=== PATIENT | male | born 1980 | race Caucasian/White ===

== ENCOUNTER 2019-11-30 06:22 | Observation (INO) ==
--- NOTE | 2019-11-12 11:52 | PAT Medication Instructions ---
Medication Instructions Date of Service November 12, 2019 Home Medications acetaminophen [Tylenol] 325 - 650 mg PO QID PRN gabapentin 300 mg PO TID omeprazole 20 mg PO DAILY PRN Take morning of surgery With a small sip of water, OTHERWISE NOTHING TO EAT OR DRINK AFTER MIDNIGHT: acetaminophen [Tylenol] 325 - 650 mg PO QID PRN (okay to take up to 4 hours prior to surgery if needed) gabapentin 300 mg PO TID omeprazole 20 mg PO DAILY PRN (if needed) Take evening before surgery acetaminophen [Tylenol] 325 - 650 mg PO QID PRN (if needed) gabapentin 300 mg PO TID omeprazole 20 mg PO DAILY PRN (if needed) Other Notes If you have any questions please call us at [phone] or [phone] or [phone] or [phone]
--- NOTE | 2019-11-17 09:49 | Anesthesiology Consultation ---
Date of Service November 17, 2019 Assessment & Plan (1) Encounter for pre-operative examination: Per assessment on 11/16: Travel screen negative. No known COVID-19 positive contacts or current COVID-19 related symptoms. Surgeon arranging preop COVID testing. Awaiting results. Chart Review Chart Review: Acceptable Risk for Surgery and Patient seen in Pre Admission Testing Teaching & Discussion Pre-Anesthesia Teaching/Discussion Notes: Instructed NPO after midnight before surgery,except medications with 15 cc of water. Medication instructions provided according to the PAT guidelines. History Surgery Operation Date: 11/30/19 11:50 Proposed Procedures p C6-C7 Anterior Cervical Discectomy and Fusion, C6 Corpectomy, Spinal Cord Monitoring - Isidro Reese, Height/Weight Height: 5 ft 11.5 in Weight: 90.2 kg Allergies Allergy/AdvReac Type Severity Reaction Status Date / Time morphine AdvReac Intermediate Irritable Verified 11/10/19 08:49 Medications Home Medications Medication Instructions Recorded Confirmed Last Taken acetaminophen [Tylenol] 325 - 650 mg PO QID PRN 11/10/19 11/10/19 Unknown gabapentin 300 mg PO TID 11/10/19 11/10/19 Unknown omeprazole 20 mg PO DAILY PRN 11/10/19 11/10/19 Unknown Past Medical History Medical History Arthritis Claustrophobia Deep vein thrombosis 1+ years ago (LLE) GERD (gastroesophageal reflux disease) IBS (irritable bowel syndrome) hx linzess Migraine Exercise / Class Metabolic Activity III < 4 Walking/Shop/Light housework Past Family History Family History Grandfather (Maternal) Family history of diabetes mellitus Past Surgical History Surgical History H/O foot surgery RT FOOT (TOTAL OVER 13 SURGERY/CRUSHING INJURY) AT AGE 11 H/O plastic surgery RT SIDE OF FACE (DOG BIET AT AGE 9) History of amputation RT FOOT SMALL TOE History of esophagogastroduodenoscopy (EGD) Hx of skin graft RT FOOT [place] teeth removed Past Anesthesia History No Family Hx of Anesthesia Complications and Other ("Awareness" with previous surgeries (foot surgery/skin graft)) History of PONV No Hx of PONV and Hx of Motion Sickness STOP BANG Total 4 Social History Smoking Status: Current every day smoker tobacco type: cigarettes and smokeless tobacco Do You Dip or Chew Tobacco: Yes (8 CANS PER WEEK- Advised NPO AM DOS) Smoking End Date: 20 CIG DAILY Hx Alcohol Use: Yes Alcohol type: beer alcohol intake frequency: a few times a month Hx Substance Use: Yes substance use type: marijuana Last Used Substance Other:: occasional (inhalation)- Advised NPO AM DOS Review of Systems Patient denies chest pain, shortness of breath, fever, chills, cough, wheezing, palpitations. Physical Exam Vital Signs VITALS BP 116/79 P 78 TEMP 98.2 SP02 95%RA RESP 16 PHYSICAL Full neck and c-spine range of motion. Full TMJ range of motion. TMD 3.5 finger breaths Mallampati Score 2 Dentition: several missing sides/molars, + "dental work"/"nothing removable" Lungs: clear throughout to auscultation Cardiac: regular rate and rhythm, no murmurs noted Spine: normal Carotid arteries: negative bruit Extremities: no edema Testing Laboratory Results 11/17/19 10:05 11/17/19 10:05 PT 10.6 Seconds (9.0-12.0) 11/17/19 10:05 INR 1.0 (0.9-1.1) 11/17/19 10:05 APTT 31.6 Seconds (21.0-31.0) H 11/17/19 10:05 Urine Color Yellow 11/17/19 10:05 Urine Appearance Clear (Clear) 11/17/19 10:05 Urine pH 6.0 (4.5-7.5) 11/17/19 10:05 Ur Specific [place] 1.024 (1.000-1.030) 11/17/19 10:05 Urine Protein Negative (Negative) 11/17/19 10:05 Urine Glucose (UA) Negative (Negative) 11/17/19 10:05 Urine Ketones Negative (Negative) 11/17/19 10:05 Urine Nitrite Negative (Negative) 11/17/19 10:05 Ur Leukocyte Esterase Negative (Negative) 11/17/19 10:05 Blood Type O Negative 11/17/19 10:05 Antibody Screen NEGATIVE 11/17/19 10:05 Electrocardiogram Date: 11/17/19 Findings: + NSR @ (70) Chest X-Ray Date: 11/17/19 FINDINGS: Cardiomediastinal and hilar silhouettes are within normal limits. Mild pleural thickening at the apices. No pneumothorax, pleural effusion, airspace consolidation or overt pulmonary edema. Bones of the chest appear grossly intact. IMPRESSION: No acute process.
--- NOTE | 2019-11-17 10:47 | XRay Report ---
XR chest Pre-admission PA/Lat HISTORY: 39 years-old Male pat preoperative exam. No acute chest complaints COMPARISON: None TECHNIQUE: PA and lateral views of the chest FINDINGS: Cardiomediastinal and hilar silhouettes are within normal limits. Mild pleural thickening at the apic es. No pneumothorax, pleural effusion, airspace consolidation or overt pulmonary edema. Bones of the chest appear grossly intact. IMPRESSION: No acute process. ACT 112: Negative or not required by law. The above report was generated using voice recognition software. It may contain grammatical, syntax o r spelling errors. Electronically signed by: Bubba Tubbs M.D. 11/17/2019 10:45 AM
[2019-11-17 11:16] LABS: Basophils # (auto) 0.03 K/uL (0-0.2); Basophils % (auto) 0.3 %; Eosinophils # (auto) 0.23 K/uL (0-0.5); Eosinophils % (auto) 2.3 %; Hematocrit (blood only) 51.7 % (42-52); Hemoglobin 16.7 g/dL (14.0-18.0); Immature Granulocytes # (auto) 0.02 K/uL (0.00-0.02); Immature Granulocytes % (auto) 0.2 %; Lymphocytes # (auto) 2.91 K/uL (1.2-3.4); Mean Corpuscular Hemoglobin 28.6 pg (25-34); Mean Corpuscular Hgb Conc 32.3 g/dL (32-36); Mean Corpuscular Volume 88.7 fL (80-100); Mean Platelet Volume 11.8 fL (7.4-10.4); Monocytes # (auto) 0.63 K/uL (0.11-0.59); Monocytes % (auto) 6.3 %; Neutrophils # (auto) 6.22 K/uL (1.4-6.5); Neutrophils % (auto) 61.9 %; Platelet Count 270 K/uL (130-400); RDW Coefficient of Variation 13.9 % (11.5-14.5); RDW Standard Deviation 45.1 fL (36.4-46.3); Red Blood Count 5.83 M/uL (4.7-6.1); White Blood Count 10.04 K/uL (4.8-10.8)
[2019-11-17 11:24] LABS: BUN Creatinine Ratio 12.2 (10-20); Calcium 9.7 mg/dl (8.5-10.1); Creatinine Clr Calc Pharmacy 116.8 ml/min; Est GFR (African American) 122.5; Est GFR (Non-African American) 105.7; Potassium 4.4 mmol/L (3.5-5.1)
[2019-11-17 11:37] LABS: Partial Thromboplastin Ratio 1.1; Partial Thromboplastin Time 31.6 Seconds (21.0-31.0); Prothrombin Time 10.6 Seconds (9.0-12.0)
[2019-11-17 12:01] LABS: Appearance Urine Clear (Clear); Bilirubin Urine Negative (Negative); Blood Urine Negative (Negative); Color Urine Yellow; Glucose Urine UA Negative (Negative); Ketones Urine Negative (Negative); Leukocyte Esterase Urine Negative (Negative); Nitrite Urine Negative (Negative); Protein Urine Negative (Negative); Specific Gravity Urine 1.024 (1.000-1.030); Urobilinogen Urine Negative (Negative)
--- NOTE | 2019-11-17 17:27 | Electrocardiogram Report ---
Test Reason : Blood Pressure : / mmHG Vent. Rate : 070 BPM Atrial Rate : 070 BPM P-R Int : 170 ms QRS Dur : 096 ms QT Int : 380 ms P-R-T Axes : 058 089 057 degrees QTc Int : 410 ms Normal sinus rhythm Normal ECG No previous ECGs available Confirmed by Bao Mathew ([id number]) on 11/17/2019 5:27:29 PM Referred By: Isidro Reese Confirmed By:Ward Mathew
[~2019-11-30 06:22] MED LIST: ACETAMINOPHEN 500 MG TAB PO SCH; CeleBREX 200 MG CAP PO SCH; GABAPENTIN 900 MG DOSE PO SCH; LR 15ML/HR IV SCH; ceFAZolin 2000MG 2,000 MG/15 ML SYR IV SCH
[2019-11-30] MEDS ORDERED: fentaNYL citrate 100 MCG/2 ML VIAL ONE (06:54)
[2019-11-30] MEDS ORDERED: MIDAZOLAM HCL 1 MG/ML 2ML VIAL ONE (06:54)
[2019-11-30] MEDS ORDERED: HYDROmorphone INJ 2 MG/ML SYR/VIAL ONE (06:57)
[2019-11-30] MEDS ORDERED: BACITRACIN INJ 50,000 UNIT VIAL ONE (07:07)
--- NOTE | 2019-11-30 07:30 | History & Physical Bridge Note ---
Date of Service November 30, 2019 History & Physical Bridge Note I have examined the patient, reviewed the History & Physical and in the interval since the performance of the History & Physical I have noted the following changes of clinical significance: no changes noted
--- NOTE | 2019-11-30 07:32 | History & Physical Report ---
Date of Service November 30, 2019 Assessment & Plan (1) Cervical stenosis of spinal canal: Admission and Anticipated Discharge Date Admission Date: C5-C7 anterior cervical discectomy and fusion, C6 corpectomy History of Present Illness Chief Complaint: Neck and arm symptoms Primary Care Provider: Orestes Jackman MD 39-year-old male significant neck and arm symptoms is failed extensive course of nonoperative care and here for surgical invention. Allergies Allergy/AdvReac Type Severity Reaction Status Date / Time morphine AdvReac Intermediate Irritable Verified 11/30/19 06:48 Home Medications Home Medications Medication Instructions Recorded Confirmed Type acetaminophen [Tylenol] 325 - 650 mg PO QID PRN 11/10/19 11/30/19 History gabapentin 300 mg PO TID 11/10/19 11/30/19 History omeprazole 20 mg PO DAILY PRN 11/10/19 11/30/19 History Past Med/Surg History Medical History Arthritis Claustrophobia Deep vein thrombosis 1+ years ago (LLE) GERD (gastroesophageal reflux disease) IBS (irritable bowel syndrome) hx linzess Migraine Surgical History H/O foot surgery RT FOOT (TOTAL OVER 13 SURGERY/CRUSHING INJURY) AT AGE 11 H/O plastic surgery RT SIDE OF FACE (DOG BIET AT AGE 9) History of amputation RT FOOT SMALL TOE History of esophagogastroduodenoscopy (EGD) Hx of skin graft RT FOOT [place] teeth removed Family History Grandfather (Maternal) Family history of diabetes mellitus Social History Smoking Status: Current every day smoker Smoking End Date: 20 CIG DAILY; Second Hand Exposure: No; Do You Dip or Chew Tobacco: Yes (8 CANS PER WEEK- Advised NPO AM DOS); Tobacco Cessation Education Requested by Patient: No Hx Alcohol Use: Yes Alcohol type: beer Hx Substance Use: Yes Last Used Substance Other:: occasional (inhalation)- Advised NPO AM DOS Preferred Language: [place] 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
[2019-11-30] MEDS ORDERED: PROPOFOL IV EMULSION 10 MG/ML 20 ML VIAL IV ONE ×3 (08:22→09:28)
[2019-11-30] MEDS ORDERED: DEXAMETHASONE SOD INJ 4 MG/ML VIAL ONE (08:22)
[2019-11-30] MEDS ORDERED: LARYING-O-JET KIT (LTA) ONE (08:22)
[2019-11-30] MEDS ORDERED: ONDANSETRON INJ 2 MG/ML 2 ML VIAL ONE (08:22)
[2019-11-30] MEDS ORDERED: NEOSTIGMINE METHYLSULFATE 1 MG/ML 10ML VIAL ONE (08:22)
[2019-11-30] MEDS ORDERED: SUCCINYLCHOLINE CHLORIDE 20 MG/ML 10 ML VIAL IV ONE (08:22)
[2019-11-30] MEDS ORDERED: LIDOCAINE HCL 2% 2 ML VIAL/AMP(20MG/ML) INFIL ONE (08:22)
[2019-11-30] MEDS ORDERED: ROCURONIUM BROMIDE 10 MG/ML 5 ML VIAL IV ONE (08:22)
[2019-11-30] MEDS ORDERED: GLYCOPYRROLATE 0.2 MG/ML VIAL ONE (08:22)
[2019-11-30] MEDS ORDERED: ONDANSETRON INJ 2 MG/ML 2 ML VIAL IV PRN ×2 (08:23→11:27)
[2019-11-30] MEDS ORDERED: PROMETHAZINE HCL 12.5 MG in SODIUM CHLORIDE 0.9% 50 ML IV PRN ×2 (08:23→11:27)
[2019-11-30] MEDS ORDERED: ATROPINE SULFATE 0.1 MG/ML 10ML SYR IV PRN (08:23)
[2019-11-30] MEDS ORDERED: ALBUTEROL 0.083% NEBU SOLN 3 ML VIAL INH PRN (08:23)
[2019-11-30] MEDS ORDERED: LABETALOL HCL IV 5 MG/ML 20ML IV PRN (08:23)
[2019-11-30] MEDS ORDERED: FLOSEAL HEMOSTATIC MATRIX 10ML TOP ONE (08:34)
[2019-11-30] MEDS ORDERED: PHENYLEPHRINE 100MCG/ML 5ML SYR ONE (08:53)
[2019-11-30] MEDS ORDERED: ePHEDrine sulfate 50 MG/ML SYR ONE (08:53)
--- NOTE | 2019-11-30 09:36 | Operative Report ---
Post Operative Report Pre & Post Diagnosis Operation Date: 11/30/19 07:45 Pre-Op Diagnosis: Cervical spinal stenosis with myeloradiculopathy Post-Op Diagnosis: Same I identified the patient and participated in the time-out.: Yes Procedure Operation Date: 11/30/19 07:45 Actual Procedures #1 anterior cervical corpectomy with bilateral foraminotomies C6. #2 anterior cervical arthrodesis C5-C7. #3 placement peek cage 25 mm in height at C5-C7. #4 placement locally harvested morselized autograft combined with DBM with a interbody cage. #5 application of 5 complete and screws from C5-C7. Surgeon Isidro Reese, Mobile Equipment Operator Padma Wong Estimated Blood Loss 10 Findings Consistent with Post-Op Diagnosis Specimens None Indications This is a 39-year-old male who presents with above-mentioned diagnosis after failing course of nonoperative care is here for the above-mentioned procedure. Description of Procedure Patient was met with identified informed consent obtained. Patient was then taken to the operative suite underwent an patient placed in a supine position the Speedy table the head [place] head refrigeration engineer. All bony prominences well- padded I suspected to ensure no external pressure placed upon the. This point the anterior cervical spine was prepped and draped in normal sterile fashion. With the assistance of fluoroscopy identified the C6 vertebral body and a transverse incision was placed along the right anterior aspect of the cervical spine overlying his region. Sharp dissection with the assistance of bipolar electrocautery was performed down to and exposing the anterior cervical spine from C5-C7. Self-retaining retractors placed. Then performed a complete discectomy of C5-6 out to the uncovertebral joints bilaterally followed by C6- C7. Distracting pins were then placed in C5 and C7 to distract across the C6 vertebral body. A complete corpectomy was then performed including removal of all posterior annular fibers and longitudinal ligament bilateral foraminotomies. I dressed massive amounts of disc material in the neural foramen and posterior to the vertebral body. After decompression endplates were burred to subcortical bleeding bone and a 25 mm peek cage filled with locally harvested morselized autograft and DBM tapped in position. Distracting apparatus was removed. A 5 complete and screws applied with the assistance of fluoroscopy. The incision was then copiously irrigated explored to ensure no damage to surrounding structures remaining bleeding. 10 round NAMRATA drain inserted. Incision was then closed with 2 Vicryl in a fashion of 4 Monocryl for final skin closure. Steri- Strip sterile dressings placed. Patient will continue to PACU stable condition. Please note spinal cord monitoring was utilized that the procedure no changes noted. Lastly Padma Wong was present at the entire surgery involved the patient positioning complex portions of the surgery and final skin closure. I attest to the content of the Intraoperative Record and any orders documented therein. Any exceptions are noted below.
[2019-11-30] MEDS: HYDROmorphone INJ 1 MG/ML SYRINGE IV PRN ×5 (09:56→10:30)
--- NOTE | 2019-11-30 09:59 | Fluoroscopy Report ---
FL cervical 2-3V CLINICAL HISTORY: ACDF C5-7 CORPECTOMY C6 COMPARISON STUDY: None. FLUOROSCOPY TIME: 18 seconds. FLUOROSCOPIC IMAGES: 2 FINDINGS: These images demonstrate a C6 corpectomy at C5-C7 anterior discectomy and fusion. Hardware is intact. Endotracheal tube is partially imaged. IMPRESSION: Fluoroscopy provided during C6 corpectomy and C5-7 anterior discectomy and fusion. ACT 112: Negative or not required by law. Electronically signed by: Yonas Light M.D. 11/30/2019 9:58 AM
--- NOTE | 2019-11-30 10:53 | Anesthesiology Progress Note ---
Date of Service November 30, 2019 Anesthesia Post Procedure Vital Signs Vital Signs: Temp Pulse Resp BP Pulse Ox 11/30/19 10:45 75 16 145/96 H 94 11/30/19 10:35 77 10 L 138/88 97 11/30/19 10:25 61 12 136/91 97 11/30/19 10:15 68 12 138/90 93 11/30/19 10:05 72 17 124/96 96 11/30/19 09:55 71 17 140/96 97 11/30/19 09:48 36.4 C L 88 16 141/91 H 97 11/30/19 06:44 36.6 C 76 20 133/96 97 Pain Intensity Left Shoulder: Pain Intensity: 8 Right Neck: Pain Intensity: 4 Transfer of Care Handoff Completed per policy Notes Mental Status: alert / awake / arousable Patient Amnestic to Procedure: Yes Nausea / Vomiting: adequately controlled Pain: adequately controlled Airway Patency, RR, SpO2: stable & adequate BP & HR: stable & adequate Hydration State: stable & adequate Anesthetic Complications: no major complications apparent
[2019-11-30] MEDS ORDERED: ALUMINUM/MAGNESIUM SUSP 30 ML UDC PO PRN (11:27)
[2019-11-30] MEDS ORDERED: diphenhydrAMINE Capsule 25 MG CAP PO PRN (11:27)
[2019-11-30] MEDS ORDERED: NALOXONE HCL 0.4 MG/1 ML VIAL/CARP IV PRN (11:27)
[2019-11-30] MEDS ORDERED: RACEPINEPHRINE 2.25% NEBU SOLN 0.5 ML VIAL INH PRN (11:27)
[2019-11-30] MEDS ORDERED: LORazepam 0.5 MG TAB PO PRN (11:27)
[2019-11-30] MEDS ORDERED: traMADol HCL 50 MG TABLET PO PRN (11:27)
[2019-11-30] MEDS ORDERED: DO NOT ADMINISTER PNEUMOCOCCAL VACCINE PRN (11:27)
[2019-11-30] MEDS ORDERED: DO NOT ADMINISTER FLU VACCINE PRN (11:27)
[2019-11-30] MEDS ORDERED: SOD PHOSPHATE/SOD BIPHOSPHATE ENEMA 132 ML BTL PR PRN (11:27)
[2019-11-30] MEDS ORDERED: DEXAMETHASONE SOD PHOSPHATE 8 MG in SYRINGE 0 ML IV PRN (11:27)
[2019-11-30] MEDS ORDERED: METOCLOPRAMIDE HCL INJ 5 MG/ML 2 ML VIAL IV PRN (11:27)
[2019-11-30] MEDS ORDERED: ONDANSETRON 4 MG OD TAB PO PRN (11:27)
[2019-11-30] MEDS ORDERED: FAMOTIDINE 20 MG TAB PO PRN (11:27)
[2019-11-30] MEDS ORDERED: ACETAMINOPHEN 500 MG TAB PO PRN (11:27)
[2019-11-30] MEDS ORDERED: MAGNESIUM HYDROXIDE SUSP 30 ML UDC PO PRN (11:27)
[2019-11-30] MEDS ORDERED: HYDROmorphone INJ 0.5 MG/0.5 ML SYR IV PRN (11:27)
[2019-11-30] MEDS ORDERED: ACETAMINOPHEN 1,000 MG/100 ML VIAL IV PRN (11:27)
[2019-11-30] MEDS ORDERED: LORazepam 0.5 MG/1 ML VIAL IV PRN (11:27)
[2019-11-30] MEDS ORDERED: hydrOXYzine HCl 25 MG TAB PO PRN (11:27)
[2019-11-30] MEDS ORDERED: HYDROmorphone INJ 1 MG/ML SYRINGE IV PRN (11:27)
[2019-11-30] MEDS ORDERED: PANTOprazole 40 MG TAB PO PRN (11:36)
[2019-11-30] MEDS: GABAPENTIN 300 MG CAP PO SCH ×2 (13:29→21:00)
[2019-11-30] MEDS: LACTATED RINGER'S 1,000 ML IV SCH ×2 (13:29→22:13)
[2019-11-30] MEDS: ceFAZolin 2000MG 2,000 MG/15 ML SYR IV SCH ×2 (16:17→23:56)
[2019-11-30] MEDS ORDERED: DOCUSATE SODIUM/SENNA 50/8.6MG TAB PO SCH (21:00)
[2019-11-30] MEDS ORDERED: COUGH DROP (SUGAR FREE) LOZ 24 LOZ/1 BOX BUCCAL ONE (22:17)
[2019-11-30] MEDS: oxyCODONE HCL IR 5 MG TAB (IMMEDIATE RELEASE) PO PRN (22:18)
[2019-12-01] MEDS: oxyCODONE HCL IR 5 MG TAB (IMMEDIATE RELEASE) PO PRN ×2 (04:37→09:42)
[2019-12-01] MEDS: GABAPENTIN 300 MG CAP PO SCH (08:34)
[2019-12-01] MEDS ORDERED: POLYETHYLENE (MIRALAX) 17 GM PACK PO SCH (09:37)
--- NOTE | 2019-12-01 10:18 | Discharge Summary ---
Date of Service December 01, 2019 Admission HPI Per Admitting Provider 39-year-old male significant neck and arm symptoms is failed extensive course of nonoperative care and here for surgical invention. Principal Diagnosis Cervical spinal stenosis with myeloradiculopathy Discharge Data Allergies Allergy/AdvReac Type Severity Reaction Status Date / Time morphine AdvReac Intermediate Irritable Verified 11/30/19 06:48 Procedures Performed Operation Date: 11/30/19 07:45 Actual Procedures p C5-C7 Anterior Cervical Discectomy and Fusion, C6 Corpectomy, Spinal Cord Monitoring(Not Applicable) - Isidro Reese DO Ordered Studies 11/30/19 07:45 FL cervical 2-3V Routine FL fluoroscopy <1hr Routine Hospital Course (1) Cervical stenosis of spinal canal: Patient went anterior cervical corpectomy tolerated this well second orthopedic for postoperative. Postop day 1 of swallowing well no hoarseness arm symptoms markedly improved. Excellent strength testing. Subsequently discharged home. Discharge orders and instructions found in the chart for further review. Total Time Total Time Spent Total Time Spent (In Minutes): 20 minutes Discharge Plan Discharge Items Patient Disposition: Home - Self-Care Reason For Visit: Spinal Stenosis, Cervical Region Discharge Diagnosis: Cervical spinal stenosis with myeloradiculopathy Activity: As commented below Non-emergency contact: Primary Care Provider Call non-emergency contact if: you have any medication questions Follow-up/Referrals: Orestes Jackman MD [Primary Care Provider] - Diet: Regular Addtl Attending Provider Instructions: ACTIVITY RECOMMENDATIONS: SELF CARE INSTRUCTIONS AFTER CERVICAL FUSIONS 1. No smoking. Smoking drastically decreases the chance of a solid fusion. 2. No bending, lifting more than 5 pounds, or twisting (roll like a log when turning in bed). 3. You may shower 3 days after surgery. Thoroughly dry wound. Do not soak in the tub. 4. Cervical collar: Must be worn at all times including sleeping. You may remove the brace only to bath, eat and if you are sitting in a recliner. 5. Please walk as much as you can for exercise. Gradually increase the distance that you walk as your endurance increases. SPECIAL CARE INSTRUCTIONS: VERY IMPORTANT TO READ AND REVIEW A. Do not take any anti-inflammatory medications (i.e. Indocin, Advil, Aspirin, Naprosyn, Aleve, Motrin, etc.) as these may inhibit the chance of a solid fusion. Tylenol is okay to take. B. Your surgical incision has been closed with a cosmetic suture under the skin that will dissolve in about 6 weeks. In 14 days, you can use a pair of clean scissors and cut the suture that is left outside of the skin at the ends of your incision. C. Complications are uncommon, but please contact us if you have any signs or symptoms of: 1. wound infection (fever higher than 102.5 degrees F, redness, separation of wound, drainage, or increasing pain from the incision) 2. blood clots in legs (pain, swelling, redness and warmth in legs) 3. urinary tract infection (fever higher than 102.5 degrees, burning upon urination or increased frequency of urination) 4. nerve problems (inability to walk on your toes or heels, numbness, loss of bowel or bladder control) 5. any other symptoms that concern you. D. Please call the office at if you have any concerns or questions about your operation or recovery. MANAGING PAIN AFTER SPINAL SURGERY 1. Narcotic medication is intended for short-term use and will be provided for surgical pain. Surgical pain usually lasts for a period of 4-6 weeks. Narcotic medication includes Percocet, Vicodin, Darvocet, Tylenol #3 or Lortab. 2. Longer-term pain is more appropriately treated with non-narcotic medication such as Tylenol ES. 3. Muscle spasm is not appropriately treated with narcotics. Muscle relaxers such as Soma, Flexeril or Skelaxin can be used along with Tylenol ES. 4. Remember that we all live with some "aches and pains". This is not unusual or uncommon after an injury or as we get older. 5. We will provide appropriate medication within the normal guidelines of their prescribed use. We will also be very cautious and aware of potential abuse and extended duration of patients' medication needs. 6. Please allow 2-3 days to process refills. Prescriptions will not be mailed but must be picked up at the office. FOLLOW UP VISIT: Keep your scheduled follow-up appointment. Any questions, please call the office at . Pending Studies at Discharge: No Stand-Alone Forms: My [employer] system, Smoking Cessation Medications and DC Order Prescriptions: New tramadol 50 mg tablet 50 mg PO Q6H PRN (Reason: pain, moderate) Qty: 20 RF: 0 oxycodone 5 mg tablet 5 mg PO Q6H PRN (Reason: pain, severe) Qty: 20 RF: 0 Continued gabapentin 300 mg Capsule 300 mg PO TID RF: 0 omeprazole 20 mg Tablet,Delayed Release (Dr/Ec) 20 mg PO DAILY PRN (Reason: Heartburn) RF: 0 acetaminophen [Tylenol] 325 mg Tablet 325 - 650 mg PO QID PRN (Reason: Pain) RF: 0 Discharge Orders: Discharge Order (Routine); Ordered 12/01/19 Ordered By: Isidro Reese Admission Data Admit Date/Time: 11/30/19 10:26 Attending Provider: Isidro Reese Admit Provider: Isidro Reese Primary Care Provider: Orestes Jackman
[2019-12-01] MEDS ORDERED: DEXAMETHASONE SOD PHOSPHATE 8 MG in SYRINGE 0 ML IV ONE (10:45)
--- NOTE | 2019-12-01 12:51 | Anesthesiology Progress Note ---
Date of Service December 01, 2019 Anesthesia Post Procedure Vital Signs Vital Signs: Temp Pulse Resp BP BP Pulse Ox 12/01/19 10:43 36.3 C L 77 16 139/89 143/90 H 98 12/01/19 09:44 36.3 C L 77 16 143/90 H 98 12/01/19 08:23 36.4 C L 76 18 141/84 H 98 12/01/19 07:16 88 16 97 12/01/19 05:59 36.7 C 85 16 127/86 97 12/01/19 04:31 36.7 C 75 20 123/71 98 12/01/19 03:23 92 H 14 97 12/01/19 02:17 36.8 C 79 16 133/85 95 12/01/19 00:14 88 14 132/88 95 12/01/19 00:00 36.6 C 83 18 143/92 H 95 11/30/19 23:20 102 H 16 91 11/30/19 22:55 36.7 C 78 16 154/67 H 95 11/30/19 22:04 36.7 C 87 16 146/95 H 93 11/30/19 20:10 36.6 C 88 16 151/97 H 96 11/30/19 19:25 86 16 97 11/30/19 18:14 36.8 C 80 18 146/84 H 96 11/30/19 16:07 36.9 C 75 16 151/92 H 93 11/30/19 15:27 101 H 16 98 11/30/19 14:01 76 18 152/97 H 95 11/30/19 13:05 69 16 147/94 H 93 Pain Intensity Left Shoulder: Pain Intensity: 8 Right Neck: Pain Intensity: 3 Notes Mental Status: alert / awake / arousable and participated in evaluation Nausea / Vomiting: adequately controlled Pain: adequately controlled Airway Patency, RR, SpO2: stable & adequate BP & HR: stable & adequate Hydration State: stable & adequate Anesthetic Complications: no major complications apparent and Pt Satisfied with anesthetic care
[2019-12-02] MEDS ORDERED: bisacodyL 10 MG SUPP PR PRN (09:37)
== END 2019-12-01 11:22 | disposition home or self-care (01) ==
LOC: 3E 06:22 → ASU 06:22

== ENCOUNTER 2019-12-05 13:49 | Inpatient (IN) ==
[2019-12-05 14:51] LABS: Appearance Urine Clear (Clear); Bacteria Urine Automated Negative (Negative); Bilirubin Urine Negative (Negative); Blood Urine Trace (Negative); Cast Urine Automated 0 /lpf (0-5); Color Urine Dark Yellow; Epithelial Cell Urine Auto 0-5 /lpf (0-5); Glucose Urine UA Negative (Negative); Ketones Urine 2+ (Negative); Leukocyte Esterase Urine Negative (Negative); Nitrite Urine Negative (Negative); Protein Urine Negative (Negative); RBC Urine Automated 0-4 /hpf (0-4); Specific Gravity Urine 1.023 (1.000-1.030); Urobilinogen Urine Negative (Negative); WBC Urine Automated 0 /hpf (0-5)
[2019-12-05 14:52] LABS: Basophils # (auto) 0.02 K/uL (0-0.2); Basophils % (auto) 0.1 %; Eosinophils % (auto) 0.7 %; Hematocrit (blood only) 46.7 % (42-52); Hemoglobin 16.4 g/dL (14.0-18.0); Immature Granulocytes # (auto) 0.04 K/uL (0.00-0.02); Immature Granulocytes % (auto) 0.3 %; Lymphocytes # (auto) 2.32 K/uL (1.2-3.4); Lymphocytes % (auto) 16.3 %; Mean Corpuscular Hemoglobin 30.3 pg (25-34); Mean Corpuscular Hgb Conc 35.1 g/dL (32-36); Mean Corpuscular Volume 86.2 fL (80-100); Mean Platelet Volume 11.2 fL (7.4-10.4); Monocytes % (auto) 8.4 %; Neutrophils # (auto) 10.57 K/uL (1.4-6.5); Neutrophils % (auto) 74.2 %; Platelet Count 322 K/uL (130-400); RDW Coefficient of Variation 13.1 % (11.5-14.5); RDW Standard Deviation 41.2 fL (36.4-46.3); Red Blood Count 5.42 M/uL (4.7-6.1); White Blood Count 14.25 K/uL (4.8-10.8)
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
[2019-12-05 15:12] LABS: Albumin Level 4.5 gm/dl (3.4-5.0); Calcium 9.9 mg/dl (8.5-10.1); Creatinine Clr Calc Pharmacy 114.7 ml/min; Est GFR (African American) 117.8; Est GFR (Non-African American) 101.6; Potassium 3.9 mmol/L (3.5-5.1)
[2019-12-05 15:16] LABS: Acetaminophen < 2 ug/ml (10-30); Salicylate < 1.7 mg/dl (2.8-20)
[2019-12-05 15:23] LABS: Amphetamines+Metham, Urine Neg (Neg); Barbiturates, Urine Neg (Neg); Benzodiazepine, Urine Neg (Neg); Cocaine, Urine Neg (Neg); MDMA (Ecstacy), Urine Neg (Neg); Methadone, Urine Neg (Neg); Opiate, Urine Pos (Neg); Phencyclidine, Urine Neg (Neg)
[2019-12-05 15:23] LABS: Bilirubin,Total 0.9 mg/dl (0.2-1); Globulin 4.5 gm/dl (2.5-4.0); Thyroid Stimulating Hormone 1.13 uIu/ml (0.300-4.500)
[2019-12-05 15:58] VITALS: O2SAT 98
[2019-12-05] MEDS ORDERED: LORazepam 1 MG TAB SL STA ×2 (15:59→19:19)
[2019-12-05] MEDS ORDERED: oxyCODONE HCL IR 5 MG TAB (IMMEDIATE RELEASE) PO STA (16:47)
[2019-12-05] MEDS: NICOTINE POLACRILEX 2 MG GUM MT PRN ×2 (16:52→20:09)
--- NOTE | 2019-12-05 18:09 | Emergency Department Note ---
ED Visit Note I assumed care at the change of shift, bed placement for an involuntary psychiatric admission was underway. The patient has been accepted at our hospital's psychiatric facility, [facility] [address]. The patient is being transferred to the floor. . : Accidental bumping into stationary object Qualifiers: Encounter type: initial encounter Qualified Code(s): W22.8XXA - Striking against or struck by other objects, initial encounter
[2019-12-05] MEDS ORDERED: ALUMINUM/MAGNESIUM SUSP 30 ML UDC PO PRN (18:36)
[2019-12-05] MEDS ORDERED: hydrOXYzine HCl 25 MG TAB PO PRN (18:36)
[2019-12-05] MEDS ORDERED: BISMUTH SUBSALICYLATE LIQD 236 ML PO PRN (18:36)
[2019-12-05] MEDS ORDERED: SODIUM CHLORIDE 0.65% NA SOLN 45 ML (OCEAN) PRN (18:36)
[2019-12-05] MEDS ORDERED: MAGNESIUM HYDROXIDE SUSP 30 ML UDC PO PRN (18:36)
[2019-12-05] MEDS ORDERED: HALOPERIDOL LACTATE 5 MG/ML 1 ML VIAL IM PRN (18:42)
[2019-12-05] MEDS ORDERED: haloperidoL 5 MG TAB PO PRN (18:44)
[2019-12-05] MEDS ORDERED: LORazepam 2 MG/ML VIAL (IM USE) IM PRN (18:44)
[2019-12-05] MEDS ORDERED: LORazepam 1 MG TAB PO PRN (18:45)
[2019-12-05] MEDS ORDERED: BENZTROPINE MESYLATE 1 MG/ML 2 ML AMP IM PRN (18:46)
[2019-12-05] MEDS ORDERED: BENZTROPINE MESYLATE 1 MG TAB PO PRN (18:47)
[2019-12-05] MEDS ORDERED: traMADol HCL 50 MG TABLET PO PRN (18:51)
[2019-12-05] MEDS: NICOTINE 14 MG/24 HR PATCH TD SCH (20:08)
[2019-12-05] MEDS ORDERED: INFLUENZA VIRUS QUAD VACCINE 0.5 ML SYR IM ONE (20:45)
[2019-12-05] MEDS ORDERED: INFLUENZA ADMINISTRATION CHARGE ONE (20:45)
[2019-12-06] MEDS: NICOTINE POLACRILEX 2 MG GUM MT PRN ×7 (06:40→21:51)
[2019-12-06] MEDS ORDERED: NON-FORMULARY MEDICATION (Omeprazole 20 MG) PO SCH (09:00)
[2019-12-06] MEDS: PANTOprazole 40 MG TAB PO SCH (09:41)
[2019-12-06] MEDS: NICOTINE 14 MG/24 HR PATCH TD SCH (09:41)
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
[2019-12-06] MEDS: QUEtiapine FUMARATE 25 MG TABLET PO SCH ×2 (12:15→23:17)
[2019-12-06] MEDS: ESCITALOPRAM OXALATE 10 MG TAB PO SCH (12:15)
[2019-12-06] MEDS: oxyCODONE/ACETAMINOPHEN 5mg/325mg TAB PO PRN ×2 (13:13→21:51)
[2019-12-06] MEDS: hydrOXYzine HCl 25 MG TAB PO PRN (23:19)
[2019-12-07] MEDS: ACETAMINOPHEN 325 MG TAB PO PRN ×3 (00:52→17:56)
[2019-12-07] MEDS: hydrOXYzine HCl 25 MG TAB PO PRN ×2 (00:53→21:36)
[2019-12-07] MEDS: oxyCODONE/ACETAMINOPHEN 5mg/325mg TAB PO PRN ×3 (06:54→21:33)
[2019-12-07] MEDS: NICOTINE POLACRILEX 2 MG GUM MT PRN ×10 (06:55→21:43)
[2019-12-07] MEDS: QUEtiapine FUMARATE 25 MG TABLET PO SCH ×3 (06:55→21:32)
[2019-12-07 07:37] LABS: Basophils # (auto) 0.03 K/uL (0-0.2); Basophils % (auto) 0.3 %; Eosinophils # (auto) 0.25 K/uL (0-0.5); Eosinophils % (auto) 2.5 %; Hematocrit (blood only) 45.3 % (42-52); Hemoglobin 15.4 g/dL (14.0-18.0); Immature Granulocytes # (auto) 0.01 K/uL (0.00-0.02); Immature Granulocytes % (auto) 0.1 %; Lymphocytes # (auto) 3.17 K/uL (1.2-3.4); Lymphocytes % (auto) 31.3 %; Mean Corpuscular Hemoglobin 29.6 pg (25-34); Mean Corpuscular Volume 86.9 fL (80-100); Mean Platelet Volume 11.2 fL (7.4-10.4); Monocytes # (auto) 1.14 K/uL (0.11-0.59); Monocytes % (auto) 11.2 %; Neutrophils # (auto) 5.54 K/uL (1.4-6.5); Neutrophils % (auto) 54.6 %; Platelet Count 341 K/uL (130-400); RDW Standard Deviation 42.1 fL (36.4-46.3); Red Blood Count 5.21 M/uL (4.7-6.1); White Blood Count 10.14 K/uL (4.8-10.8)
[2019-12-07] MEDS: PANTOprazole 40 MG TAB PO SCH (08:31)
[2019-12-07] MEDS: ESCITALOPRAM OXALATE 10 MG TAB PO SCH (08:31)
[2019-12-07] MEDS: NICOTINE 14 MG/24 HR PATCH TD SCH ×2 (08:38→11:41)
--- NOTE | 2019-12-07 09:14 | Psychiatric Progress Note ---
Date of Service December 07, 2019 Impression / Recommendations Gio Blancas is a 39-year-old gentleman who describes a life story of never quite measuring up and chronically insecure attachments. He is lamenting what he perceives as the end of his marriage. Notably, coping appears decompensated in proximity to recent C-spine surgery and opioid analgesia which he is not abusing on self-report. It sounds that he came very close to attempting to kill himself via firearm prior to admission on 302 status. While he readily acknowledges recent suicidal ideation, history of impulsivity, emotional distress, and a need for additional support, he expresses eagerness for discharge. At his baseline he sounds to experience more symptoms of chronic anxiety and rumination as compared to depression. Diagnosis: MDD, single episode, severe, without psychosis; generalized anxiety disorder; cluster B personality traits; rule out intermittent explosive disorder; marijuana use disorder; history of methamphetamine use disorder, in sustained remission (1) Depression with suicidal ideation: 12/05 -Patient admitted on a 302 involuntary commitment which will on the at 1618. -Patient will be maintained on safety checks and elopement precautions -He will be encouraged to participate in unit programming as appropriate -Patient was educated regarding the likelihood that postop convalescence has further decompensated his coping ability as well as possibility that his pain and opioid analgesia is also negatively impacting his mood -Patient was agreeable to trial of SSRI targeting mood and anxiety. He was agreeable to starting Lexapro 10 mg p.o. every morning after discussion of risks and benefits of this agent and several alternatives within the same class. Lexapro chosen for good anxiolytic profile, minimal activation, and easy titration -consider transitioning him from the opiate prn as quickly as able due to potential negative impact on mood 12/06 - Continue escitalopram 10mg daily - titrating quetiapine as below. Pt does admit to feeling as though the pain medication prescribed after surgery have continued to impact his mood and may be related to his suicidal ideation and act of furtherance. - Pt did participate in a family meeting via phone with his mother today. She is supportive and willing for patient to live with her after discharge. She admitted that guns have been secured. - [facility] sent, awaiting intake appointment - Continue to encourage engagement in group and recreational programming (2) Anxious mood: 12/05 -Suspect KYLER with contribution from underlying cluster B personality traits -Lexapro as above -As part of this seems clearly situational and patient demonstrates and de scribes a history of mood and behavioral lability/impulsivity, I recommended temporary treatment with low-dose atypical antipsychotic for stabilization of affect and impulse control. He was agreeable to a trial and will start seroquel 25mg bid and 50mg qhs. Common risks and benefits reviewed including metabolic and motor side effects. -labs in AM: repeat CBC to trend WBC's fasting gluc, and fasting lipids -Patient was strongly encouraged to participate in therapeutic programming during his hospitalization. 12/06 - Continue current dose of escitalopram 10mg. Pt agreed to titration of florencio karina dose of quetiapine to 100mg for further ability to stabilize mood, continue 25mg morning and afternoon doses. - Continue to encourage participation in group and recreational programming in order to develop healthy and effective coping strategies. (3) H/O cervical spine surgery: 12/05 -pt permitted to wear C-collar per surgery rec -continue home dose oxycodone and ultram prn regimen for now Inventory Assets Strengths: Able to articulate stressors Needs: Needs provision for safety, pharmacotherapy Risk Factors Assessment Male: Yes : Yes Do You Have Access To A Gun?: Yes (Guns have been secured by his friend, Jean) Health Problems: Yes Substance Use Disorders: Yes Previous Attempt: No Previous Psychiatric Hospitalization: No Protective Factors Assessment Jehovah'S Witness Beliefs: No : Yes Responsible for Young Children: Yes Employed: Yes Stable Relationships: No Supportive Family: No Interval History Identifying Information SUKHWINDER ESTRADA is a 39-year-old M who currently lives with his and son and has a recent history of C-spine surgery on 11/30/2019 and a more distant h/o methamphetamine abuse but no formal psychiatric history, and was admitted on 12/05/19 18:36 on a 302 involuntary commitment for SI. Chief Complaint "I've been waiting for you all day, can you wait five minutes for me to finish my story? We actually, you may want to hear this too." Review of Systems Notes Constitutional: reports poor sleep Cardiovascular: denied Respiratory: denied Gastrointestinal: denied Neurological: denied Musculoskeletal: reports neck pain, discomfort specifically while sleeping Psychiatric: denies symptoms other than stated above Total of at least 10 systems reviewed, pertinent positives as above and in HPI. Sleep Information Total Hours of Sleep: 5 Meal Information Percent Meal Consumed - Breakfast: 0 Percent Meal Consumed - Lunch: 100 Percent Meal Consumed - Dinner: 60 Subjective Subjective Patient was seen & assessed and interval progress reviewed with treatment team. Staff report the patient has been very focused on discharge, even calling supports last evening to come pick him up today. He has been denying SI, but has also been limited with regard to group participation. Pt was rather labile and over-reactive today after it was reiterated that discharge was not being considered for today. He was loud and easily tearful while discussing this with staff. He did agree to a family meeting with his mother, and during that meeting agreed to a referral to [facility] for outpatient treatment. Pt was seen today following that meeting to discuss progress since admission. Pt states, "I've been waiting for you all day, can you wait five minutes for me to finish my story? We actually, you may want to hear this too." Pt had been in the activity room sharing a story with his peers about how he gained full custody of his son. Pt's story did demonstrate positive work toward removing himself from temptation to continue abusing substances and he did appear proud of himself. Pt did accompany this provider to a separate space where we could discuss his treatment in greater detail. He reports frustration, primarily with regard to pain and feeling physically uncomfortable on our unit. He continues to inquire about discharge today, but did respond appropriately when this provider verbalized numerous concerns. Pt was praised for his willingness to participate in a meeting and his willingness to follow-up with [facility] after discharge. Due to this, he is hopeful for discharge tomorrow, but was reassured this could not be guaranteed. Pt reports overall improvement in his mood and is now reporting his son is his primary reason to continue to live. He denies continued SI and states he feels his pain medications may have contributed to his mood changes. He was encouraged to call his orthopedic surgeon's office directly with any questions or concerns about the involvement of pain medication in his presentation. Pt denied other needs or concerns at this time. Physical Exam Psychiatric Orientation: alert, oriented x 3 and + guarded (superficially cooperative ) Apperance: appropriately dressed (casually, wearing jeans and t-shirt with flannel over top), + disheveled (poor grooming, appearing unkempt) and appeared stated age Eye Contact: + fair eye contact Motor Behavior: steady gait and station and + psychomotor agitation (pacing behavior) Speech: + loud speech and normal rate/rhythm/volume of speech Affect: + blunted affect and + irritable affect Mood: + irritable mood (admits to frustrations regarding ongoing admission and physical discomfort); no depressed mood Thought Process: goal directed thought process and + concrete thought process Thought Content: + cognitive distortions and + guilt; no hopelessness and no worthlessness Suicidal Thoughts: denies suicidal thoughts and denies suicidal intent Homicidal Thoughts: denies homicidal thoughts Hallucinations: no auditory hallucinations and no visual hallucinations Cognition: language grossly intact; + attention not intact (distracted, frequently interrupting) Estimated Intelligence: + below average estimated intelligence Insight: + limited insight Judgement: + limited judgement Vital Signs (Past 24 Hours) Last Vital Signs Temp 36.8 C 12/07/19 06:39 Pulse 96 H 12/07/19 06:39 Resp 16 12/07/19 06:39 BP 153/102 H 12/07/19 06:39 Pulse Ox 98 12/05/19 17:34 Results & Data ([facility]) Laboratory Results Laboratory Results - last 24 hr 12/07/19 12/07/19 07:15 07:15 WBC 10.14 RBC 5.21 Hgb 15.4 Hct 45.3 MCV 86.9 MCH 29.6 MCHC 34.0 RDW Std Deviation 42.1 RDW Coeff of Makayla 13.0 Plt Count 341 MPV 11.2 H Immature Gran % (Auto) 0.1 Neut % (Auto) 54.6 Lymph % (Auto) 31.3 Motley % (Auto) 11.2 Eos % (Auto) 2.5 Baso % (Auto) 0.3 Neut # (Auto) 5.54 Lymph # (Auto) 3.17 Motley # (Auto) 1.14 H Eos # (Auto) 0.25 Baso # (Auto) 0.03 Immature Gran # (Auto) 0.01 Fasting Glucose Pending Triglycerides Pending Cholesterol Pending LDL Cholesterol, Calc Pending VLDL Cholesterol, Calc Pending HDL Cholesterol Pending Cholesterol/HDL Ratio Pending Current Inpatient Medications Current Inpatient Medications: Current Inpatient Medications Acetaminophen (Acetaminophen 325 Mg Tab) 650 mg PO Q4H PRN PRN Reason: Headache or Minor Fever Stop: 01/04/20 18:35 Last Admin: 12/07/19 00:52 Dose: 650 mg Documented by: Al Hydrox/Mg Hydrox/Simethicone (Aluminum/Magnesium Susp 30 Ml Udc) 30 ml PO Q4H PRN PRN Reason: GI Upset Stop: 01/04/20 18:35 Benztropine Mesylate (Benztropine Mesylate 1 Mg/Ml 2 Ml Amp) 1 mg IM Q6H PRN PRN Reason: EPS/Restlessness Stop: 01/04/20 18:59 Benztropine Mesylate (Benztropine Mesylate 1 Mg Tab) 1 mg PO Q6H PRN PRN Reason: EPS/Restlessness Stop: 01/04/20 18:46 Bismuth Subsalicylate (Bismuth Subsalicylate Liqd 236 Ml) 15 ml PO PRN PRN PRN Reason: Loose Stool Stop: 01/04/20 18:35 Escitalopram Oxalate (Escitalopram Oxalate 10 Mg Tab) 10 mg PO QAM GUERLINE Stop: 01/05/20 10:14 Last Admin: 12/07/19 08:31 Dose: 10 mg Documented by: Haloperidol (Haloperidol 5 Mg Tab) 5 mg PO Q6H PRN PRN Reason: Anxiety/Agitation Stop: 01/04/20 18:43 Last Admin: 12/06/19 00:30 Dose: 5 mg Documented by: Haloperidol Lactate (Haloperidol Lactate 5 Mg/Ml 1 Ml Vial) 5 mg IM Q6H PRN PRN Reason: Anxiety/Agitation Stop: 01/04/20 18:41 Hydroxyzine HCl (Hydroxyzine Hcl 25 Mg Tab) 50 mg PO HSZ PRN PRN Reason: Insomnia Stop: 01/04/20 18:35 Last Admin: 12/07/19 00:53 Dose: 50 mg Documented by: Hydroxyzine HCl (Hydroxyzine Hcl 25 Mg Tab) 25 mg PO Q4H PRN PRN Reason: Anxiety Stop: 01/04/20 18:35 Lorazepam (Lorazepam 2 Mg/Ml Vial (Im Use)) 1 mg IM Q6H PRN PRN Reason: Anxiety/Agitation Stop: 01/04/20 18:44 Lorazepam (Lorazepam 1 Mg Tab) 1 mg PO Q6H PRN PRN Reason: Anxiety/Agitation Stop: 01/04/20 18:44 Last Admin: 12/06/19 00:30 Dose: 1 mg Documented by: Magnesium Hydroxide (Magnesium Hydroxide Susp 30 Ml Udc) 30 ml PO DAILY PRN PRN Reason: Constipation Stop: 01/04/20 18:35 Miscellaneous (Remove Nicoderm Patch) 1 ea N/A DAILY@[id number] [facility] Stop: 01/05/20 08:58 Last Admin: 12/07/19 08:38 Dose: Not Given Documented by: Nicotine (Nicotine 14 Mg/24 Hr Patch) [facility] Stop: 01/04/20 18:44 Last Admin: 12/07/19 08:38 Dose: Not Given Documented by: Nicotine Polacrilex (Nicotine Polacrilex 2 Mg Gum) 1 piece MT PRN PRN PRN Reason: nictoine withdrawal Stop: 01/04/20 16:46 Last Admin: 12/07/19 08:32 Dose: 1 piece Documented by: Nicotine Polacrilex (Nicotine Polacrilex 2 Mg Gum) 1 piece MT PRN PRN PRN Reason: Nicotine Withdrawal Stop: 01/04/20 18:35 Last Admin: 12/07/19 06:55 Dose: 1 piece Documented by: Oxycodone/Acetaminophen (Oxycodone/Acetaminophen 5mg/325mg Tab) 1 tab PO Q6H PRN PRN Reason: Severe Pain Stop: 12/19/19 18:47 Last Admin: 12/07/19 06:54 Dose: 1 tab Documented by: Pantoprazole Sodium (Pantoprazole 40 Mg Tab) 40 [facility] Stop: 01/05/20 08:59 Last Admin: 12/07/19 08:31 Dose: 40 mg Documented by: Quetiapine Fumarate (Quetiapine Fumarate 25 Mg Tablet) 25 mg PO [id number] [facility] Stop: 01/05/20 13:59 Last Admin: 12/07/19 06:55 Dose: 25 mg Documented by: Quetiapine Fumarate (Quetiapine Fumarate 25 Mg Tablet) 50 mg PO HS [facility] Stop: 01/05/20 21:59 Last Admin: 12/06/19 23:17 Dose: 50 mg Documented by: Sodium Chloride (Sodium Chloride 0.65% Na Soln 45 Ml ([place])) 1 - 2 sprays NA PRN PRN PRN Reason: Nasal Dryness/Congestion Stop: 01/04/20 18:35 Tramadol HCl (Tramadol Hcl 50 Mg Tablet) 50 mg PO Q6H PRN PRN Reason: Moderate Pain Stop: 01/04/20 18:50 Last Admin: 12/06/19 06:39 Dose: 50 mg Documented by: Post Discharge Appointments Primary Care Physician Name Of Family Doctor: Orestes Jackman
[2019-12-07 09:38] LABS: Glucose Fasting 92 mg/dl (70-99)
[2019-12-07 09:48] LABS: Chol HDL Ratio 4; Cholesterol 165 mg/dl (0-200); HDL Cholesterol 43 mg/dl; LDL Cholesterol Calculated 99 mg/dl; Triglycerides 116 mg/dl (0-150); VLDL Cholesterol 23 mg/dl
[2019-12-08] MEDS: oxyCODONE/ACETAMINOPHEN 5mg/325mg TAB PO PRN ×3 (04:44→19:09)
[2019-12-08] MEDS: QUEtiapine FUMARATE 25 MG TABLET PO SCH ×2 (06:32→13:38)
[2019-12-08] MEDS: NICOTINE POLACRILEX 2 MG GUM MT PRN ×9 (07:07→21:28)
[2019-12-08] MEDS: NICOTINE 14 MG/24 HR PATCH TD SCH (08:06)
[2019-12-08] MEDS: PANTOprazole 40 MG TAB PO SCH (08:06)
[2019-12-08] MEDS: ESCITALOPRAM OXALATE 10 MG TAB PO SCH (08:07)
[2019-12-08] MEDS: ACETAMINOPHEN 325 MG TAB PO PRN ×2 (08:07→21:27)
--- NOTE | 2019-12-08 10:53 | Psychiatric Progress Note ---
Date of Service December 08, 2019 Impression / Recommendations Gio Blancas is a 39-year-old gentleman who describes a life story of never quite measuring up and chronically insecure attachments. He is lamenting what he perceives as the end of his marriage. Notably, coping appears decompensated in proximity to recent C-spine surgery and opioid analgesia which he is not abusing on self-report. He reports that he came very close to attempting to kill himself via firearm prior to admission on 302 status, and that the only reason he did not shoot himself was because the gun was not loaded. While he readily acknowledges recent suicidal ideation, history of imp ulsivity, emotional distress, and a need for additional support, he has been focused on rapid discharge, and demonstrates poor insight. At his baseline he reports more symptoms of chronic anxiety and rumination as compared to depression. He has been started on escitalopram and quetiapine here, had a meeting with his mother whom he plans to live with after discharge, and is being referred for outpatient treatment. He remains at risk of harm to himself as mood is still poorly controlled, labile, and he is agitated and aggressive, and his has expressed concerns about too rapid discharge based on his frequent phone calls and threats on the phone. Inpatient treatment remains medically necessary due to the risk of harm to himself or others if discharged prematurely. Diagnosis: MDD, single episode, severe, without psychosis; generalized anxiety disorder; cluster B personality traits; rule out intermittent explosive disorder; marijuana use disorder; history of methamphetamine use disorder, in sustained remission (1) Depression with suicidal ideation: 12/05 -Patient admitted on a 302 involuntary commitment which will on the at 1618. -Patient will be maintained on safety checks and elopement precautions -He will be encouraged to participate in unit programming as appropriate -Patient was educated regarding the likelihood that postop convalescence has further decompensated his coping ability as well as possibility that his pain and opioid analgesia is also negatively impacting his mood -Patient was agreeable to trial of SSRI targeting mood and anxiety. He was agreeable to starting Lexapro 10 mg p.o. every morning after discussion of risks and benefits of this agent and several alternatives within the same class. Lexapro chosen for good anxiolytic profile, minimal activation, and easy titration -consider transitioning him from the opiate prn as quickly as able due to potential negative impact on mood 12/06 - Continue escitalopram 10mg daily - titrating quetiapine as below. Pt does admit to feeling as though the pain medication prescribed after surgery have continued to impact his mood and may be related to his suicidal ideation and act of furtherance. - Pt did participate in a family meeting via phone with his mother today. She is supportive and willing for patient to live with her after discharge. She admitted that guns have been secured. - Pt agreed to [facility] referral - information sent, awaiting intake appointment - Continue to encourage engagement in group and recreational programming 12/07 -Continue current medications. FLP and FG reviewed from yesterday, they were normal. He remains labile, consider further titration of quetiapine. -Family meeting held with mother, who is willing for patient to live with her after discharge. -Recommend the patient discontinue opiate pain medications as he reports negative impact to mood. -Referring for outpatient psychiatric care and therapy. -Encourage patient to attend participating groups, work on healthy coping skills and his discharge safety plan. -Reviewed that as a result of his 302 involuntary commitment, he cannot legally own, purchase, or possess firearms in the [facility]. His mother confirmed that guns in her home and the patient's guns are locked and secured, and he will not have access to them. (2) Anxious mood: 12/05 -Suspect KYLER with contribution from underlying cluster B personality traits -Lexapro as above -As part of this seems clearly situational and patient demonstrates and describes a history of mood and behavioral lability/impulsivity, I recommended temporary treatment with low-dose atypical antipsychotic for stabilization of affect and impulse control. He was agreeable to a trial and will start Seroquel 25mg bid and 50mg qhs. Common risks and benefits reviewed including metabolic and motor side effects. -labs in AM: repeat CBC to trend WBC's fasting gluc, and fasting lipids -Patient was strongly encouraged to participate in therapeutic programming during his hospitalization. 12/06 - Continue current dose of escitalopram 10mg. Pt agreed to titration of evening dose of quetiapine to 100mg for further ability to stabilize mood, continue 25mg morning and afternoon doses. - Continue to encourage participation in group and recreational programming in order to develop healthy and effective coping strategies. (3) H/O cervical spine surgery: 12/05 -pt permitted to wear C-collar per surgery rec -continue home dose oxycodone and Ultram prn regimen for now 12/07 -Patient signed release for Dr. Reese at [facility], called to advise him of concerns that opiate pain medication contributed to mood destabilization, as well as concerns regarding his history of addiction. Spoke with Milagro, nurse at [facility], to relay this information. We will also send records, and patient has a follow-up appointment next week. Inventory Assets Strengths: Able to articulate stressors Needs: Needs provision for safety, pharmacotherapy Risk Factors Assessment Male: Yes : Yes Do You Have Access To A Gun?: Yes (Guns have been secured by his friend, Jean) Health Problems: Yes Substance Use Disorders: Yes Previous Attempt: No Previous Psychiatric Hospitalization: No Protective Factors Assessment Nondenominational Beliefs: No : Yes Responsible for Young Children: Yes Employed: Yes Stable Relationships: No Supportive Family: No Interval History Identifying Information SUKHWINDER ESTRADA is a 39-year-old M who currently lives with his and son and has a recent history of C-spine surgery on 11/30/2019 and a more distant h/o methamphetamine abuse but no formal psychiatric history, and was admitted on 12/05/19 18:36 on a 302 involuntary commitment for SI. Chief Complaint "I'm doing great, I feel really good". Review of Systems Notes Neck pain, areas of numbness under his chin Sleep Information Total Hours of Sleep: 6 Sleep Comments: pt on q-15 minute checks Meal Information Percent Meal Consumed - Breakfast: 95 Percent Meal Consumed - Lunch: 75 Percent Meal Consumed - Dinner: 100 Subjective Subjective Patient was seen & assessed and interval progress reviewed with nursing and social work. Staff report he was agitated and angry yesterday morning, yelling at staff, but was calmer in the evening, apologized to staff about his anger outbursts, and reported improved mood. He was initially very focused on being discharged as soon as possible, but later said he wanted to focus on getting better. He told staff he was getting , but was frequently on the phone with his . He had a family meeting with the forensic social worker and his , during which she was focused on wanting immediate discharge, and insisted that he had been hospitalized voluntarily and was not on a 302 commitment. Mother was supportive of him, and willing to allow him to live with her after discharge. She was concerned about recovery from his surgery, and he was f ocused on wanting to smoke. He stated he plans to get a divorce, and when his mother suggested they try couples therapy, he said his mind was already made up. His mother confirmed that the patient's friend, Jean, has secured his guns, and that she has the guns in her home locked in a gun safe, and the patient will not have access to them. Although he had initially refused aftercare at [facility], yesterday he agreed and a referral was made. This morning, the patient's called in reporting concerns about p his volatility, stating he had made threats to punch holes in escobar while they were on the phone. She has multiple questions about his treatment, the patient agreed to sign a release for his and she was advised to call back to further discuss his care. On my assessment, the patient is labile and tearful, stating he wants to be discharged immediately, insists that he is here voluntarily and was not involuntarily committed. He says treatment has been helpful as "I didn't even know what I had, now I'm educated, I know anxiety's a real thing." He says he is "really having positive thoughts, can't believe I lost sight of everything around me, my boy, my family." He is focused on wanting to leave immediately so he can "hold my boy." He says he has not seen his son in about a week, and has not lived with him for 5 years, which he blames on his . He says he feels he has "another chance, and I gotta make it right, gotta be more supportive of my boy." Reviewed his admission, as he continues to insist that he is here voluntarily. Reviewed that he came to the ER voluntarily, but refused recommendations for inpatient admission, so was involuntarily committed. Reviewed what this means, including that he cannot legally own, purchase, or possess firearms in the [facility]. He became tearful, repeatedly asking "so I can't go hunting with my boy?" He was advised to talk to an bankruptcy attorney if he has specific legal questions. Attempted to review a safety plan with him, he stated he was not worried about worsening mood or suicidal ideation, stating "I'm getting a divorce." He states that he believes his opiate pain medications "had a lot to do with what happened and why I snapped," stating that he felt "like I did when I was coming down off meth." Physical Exam Psychiatric Orientation: alert and cooperative (Partially) Apperance: appropriately dressed and + disheveled Appears older than stated age. Wearing a neck brace. Eye Contact: + fair eye contact Motor Behavior: steady gait and station and + psychomotor agitation (Pacing, fidgeting) Loud, interrupts, angry tone Affect: + tearful affect, + labile affect and + irritable affect; + mood not congruent with affect Frequently tearful, angry, labile "I'm doing great, I feel really good." Thought Process: goal directed thought process Thought Content: + guilt Blames others Suicidal Thoughts: denies suicidal thoughts Homicidal Thoughts: denies homicidal thoughts Hallucinations: no auditory hallucinations Cognition: attention grossly intact and language grossly intact; + recent memory not intact (States he does not recall the events surrounding his admission, or being involuntarily committed) Estimated Intelligence: + below average estimated intelligence Insight: + poor insight Judgement: + poor judgement Vital Signs (Past 24 Hours) Last Vital Signs Temp 36.5 C 12/08/19 06:43 Pulse 86 12/08/19 06:44 Resp 16 12/08/19 06:43 BP 133/93 12/08/19 06:44 Pulse Ox 98 12/05/19 17:34 Results & Data ([facility]) Current Inpatient Medications Current Inpatient Medications: Current Inpatient Medications Acetaminophen (Acetaminophen 325 Mg Tab) 650 mg PO Q4H PRN PRN Reason: Headache or Minor Fever Stop: 01/04/20 18:35 Last Admin: 12/08/19 08:07 Dose: 650 mg Documented by: Al Hydrox/Mg Hydrox/Simethicone (Aluminum/Magnesium Susp 30 Ml Udc) 30 ml PO Q4H PRN PRN Reason: GI Upset Stop: 01/04/20 18:35 Benztropine Mesylate (Benztropine Mesylate 1 Mg/Ml 2 Ml Amp) 1 mg IM Q6H PRN PRN Reason: EPS/Restlessness Stop: 01/04/20 18:59 Benztropine Mesylate (Benztropine Mesylate 1 Mg Tab) 1 mg PO Q6H PRN PRN Reason: EPS/Restlessness Stop: 01/04/20 18:46 Bismuth Subsalicylate (Bismuth Subsalicylate Liqd 236 Ml) 15 ml PO PRN PRN PRN Reason: Loose Stool Stop: 01/04/20 18:35 Escitalopram Oxalate (Escitalopram Oxalate 10 Mg Tab) 10 mg PO QAM [facility] Stop: 01/05/20 10:14 Last Admin: 12/08/19 08:07 Dose: 10 mg Documented by: Haloperidol (Haloperidol 5 Mg Tab) 5 mg PO Q6H PRN PRN Reason: Anxiety/Agitation Stop: 01/04/20 18:43 Last Admin: 12/06/19 00:30 Dose: 5 mg Documented by: Haloperidol Lactate (Haloperidol Lactate 5 Mg/Ml 1 Ml Vial) 5 mg IM Q6H PRN PRN Reason: Anxiety/Agitation Stop: 01/04/20 18:41 Hydroxyzine HCl (Hydroxyzine Hcl 25 Mg Tab) 50 mg PO HSZ PRN PRN Reason: Insomnia Stop: 01/04/20 18:35 Last Admin: 12/07/19 21:36 Dose: 50 mg Documented by: Hydroxyzine HCl (Hydroxyzine Hcl 25 Mg Tab) 25 mg PO Q4H PRN PRN Reason: Anxiety Stop: 01/04/20 18:35 Lorazepam (Lorazepam 2 Mg/Ml Vial (Im Use)) 1 mg IM Q6H PRN PRN Reason: Anxiety/Agitation Stop: 01/04/20 18:44 Lorazepam (Lorazepam 1 Mg Tab) 1 mg PO Q6H PRN PRN Reason: Anxiety/Agitation Stop: 01/04/20 18:44 Last Admin: 12/06/19 00:30 Dose: 1 mg Documented by: Magnesium Hydroxide (Magnesium Hydroxide Susp 30 Ml Udc) 30 ml PO DAILY PRN PRN Reason: Constipation Stop: 01/04/20 18:35 Miscellaneous (Remove Nicoderm Patch) 1 ea N/A DAILY@[id number] [facility] Stop: 01/05/20 08:58 Last Admin: 12/08/19 08:10 Dose: Not Given Documented by: Nicotine (Nicotine 14 Mg/24 Hr Patch) 14 mg TD QAM [facility] Stop: 01/04/20 18:44 Last Admin: 12/08/19 08:06 Dose: 14 mg Documented by: Nicotine Polacrilex (Nicotine Polacrilex 2 Mg Gum) 1 piece MT PRN PRN PRN Reason: nictoine withdrawal Stop: 01/04/20 16:46 Last Admin: 12/08/19 07:07 Dose: 1 piece Documented by: Nicotine Polacrilex (Nicotine Polacrilex 2 Mg Gum) 1 piece MT PRN PRN PRN Reason: Nicotine Withdrawal Stop: 01/04/20 18:35 Last Admin: 12/08/19 09:05 Dose: 1 piece Documented by: Oxycodone/Acetaminophen (Oxycodone/Acetaminophen 5mg/325mg Tab) 1 tab PO Q6H PRN PRN Reason: Severe Pain Stop: 12/19/19 18:47 Last Admin: 12/08/19 04:44 Dose: 1 tab Documented by: Pantoprazole Sodium (Pantoprazole 40 Mg Tab) 40 mg PO QAM GUERLINE Stop: 01/05/20 08:59 Last Admin: 12/08/19 08:06 Dose: 40 mg Documented by: Quetiapine Fumarate (Quetiapine Fumarate 25 Mg Tablet) 25 mg PO [id number] GUERLINE Stop: 01/05/20 13:59 Last Admin: 12/08/19 06:32 Dose: 25 mg Documented by: Quetiapine Fumarate (Quetiapine Fumarate 100 Mg Tablet) 100 mg PO HS GUERLINE Stop: 01/07/20 21:59 Sodium Chloride (Sodium Chloride 0.65% Na Soln 45 Ml ([place])) 1 - 2 sprays NA PRN PRN PRN Reason: Nasal Dryness/Congestion Stop: 01/04/20 18:35 Tramadol HCl (Tramadol Hcl 50 Mg Tablet) 50 mg PO Q6H PRN PRN Reason: Moderate Pain Stop: 01/04/20 18:50 Last Admin: 12/06/19 06:39 Dose: 50 mg Documented by: Mental Health & Subst Abuse Tx Psychiatrist Name of Psychiatrist: Citlali Arcos Psychiatrist's Therapist Name of Therapist: Citlali Arcos Therapist's Post Discharge Appointments Primary Care Physician Name Of Family Doctor: Orestes Jackman Specialist Name of Specialist: Dr. Camron Reese Phone Number for Specialist: [phone]
[2019-12-08] MEDS ORDERED: QUEtiapine FUMARATE 100 MG TABLET PO SCH (22:00)
[2019-12-09] MEDS: oxyCODONE/ACETAMINOPHEN 5mg/325mg TAB PO PRN (04:41)
[2019-12-09] MEDS: QUEtiapine FUMARATE 25 MG TABLET PO SCH (06:26)
[2019-12-09 06:41] VITALS: BP 142/93; TEMP 97.9
[2019-12-09] MEDS: NICOTINE POLACRILEX 2 MG GUM MT PRN (07:05)
--- NOTE | 2019-12-09 08:13 | Discharge Summary ---
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 Therapist's Date of Therapist Appointment: 12/15/19 Time of Therapist Appointment: 9:00am Therapy Appointment Comment: [facility] [place] Post Discharge Appointments Primary Care Physician Name Of Family Doctor: Orestes Jackman Specialist Name of Specialist: Dr. Camron Reese Phone Number for Specialist: [phone] Date of Appointment with Specialist: 12/14/19 Time of Appointment with Specialist: 10:15am Specialty Appointment Comment: [facility] Smoking Cessation Counseling Tobacco Cessation Medication Prescribed at Discharge: Offered & Prescribed Discharge Plan Discharge Items Patient Disposition: Home - Self-Care Reason For Visit: Major Depression Recurrent Discharge Diagnosis: Depression Suicide attempt Activity: Per Instructions section Non-emergency contact: Primary Care Provider, Surgeon, Psychiatrist and Therapist Call non-emergency contact if: you have any medication questions and your symptoms worsen Follow-up/Referrals: Orestes Jackman MD [Primary Care Provider] - Diet: Regular Addtl Attending Provider Instructions: SPECIAL CARE INSTRUCTIONS: 1. Follow through with your scheduled aftercare appointments. If unable to keep an appointment, please call to reschedule. 2. Take your medication only as prescribed. Medication should not be changed or stopped without the approval of your doctor. In the event of worsening symptoms or concerns about side effects, contact your doctor immediately. 3. Utilize new healthy coping skills, anger management skills, and stress management skills learned during your hospitalization. Journal feelings and process them with a support person. Identify stressors or situations that may result in relapse, deterioration or inappropriate behaviors and develop a plan to deal with those issues. 4. If your coping skills are ineffective and you are in crisis, contact your outpatient providers for direction. If unable to reach your providers, please call the [facility] CRISIS LINE AT , go to the [facility] walk-in center at [address], [address], [place], or go to the closest Emergency Room. 5. Avoid alcohol and un-prescribed drugs. 6. You have been provided with the Mental Health Advance Directives Pamphlet for your review. AFTERCARE APPOINTMENTS: * Please call your insurance company prior to your scheduled appointment to confirm your aftercare providers are covered. Take your insurance information to your appointments. WHO TO CALL AND WHEN: Medical Emergencies: For questions or emergencies related to your hospital stay, please contact the Inpatient Behavioral Health Unit at [phone]. A erp manager is on-call 03/09 for the Behavioral Health Unit for emergencies At any time you feel your situation is an emergency, you may also call 911 immediately. Pending Studies at Discharge: No Stand-Alone Forms: My [facility], Smoking Cessation Medications and DC Order Prescriptions: New nicotine 7 mg/24 hr Patch 24 Hour 14 mg transdermal QAM Qty: 7 RF: 0 quetiapine 25 mg Tablet 25 mg PO [id number] Qty: 28 RF: 0 quetiapine 100 mg Tablet 100 mg PO HS Qty: 14 RF: 0 escitalopram oxalate 10 mg Tablet 10 mg PO QAM Qty: 14 RF: 0 Continued omeprazole 20 mg capsule,delayed release(DR/EC) 20 mg PO DAILY PRN (Reason: Acid Reflux) RF: 0 tramadol 50 mg tablet 50 mg PO Q6H PRN (Reason: Pain) RF: 0 Discontinued tramadol 50 mg tablet 50 mg PO Q6H PRN (Reason: Pain) RF: 0 oxycodone 5 mg tablet 5 mg PO Q6H PRN (Reason: Pain) RF: 0 Discharge Orders: Discharge Order (Routine); Ordered 12/09/19 Ordered By: Trish Jj Admission Data Admit Date/Time: 12/05/19 18:36 Attending Provider: Trish Jj Admit Provider: Tramaine Casas Primary Care Provider: Orestes Jackman Other Interventions: KATIEY Interdisciplinary Discharge Planning Last Done: 12/08/19 13:42 Coding Level of Care Code 72602 D/C day mgmt > 30 min Diagnoses Depression with suicidal ideation F32.9; R45.851 Anxious mood F41.9 H/O cervical spine surgery Z98.890 Methamphetamine abuse F15.10
[2019-12-09] MEDS: PANTOprazole 40 MG TAB PO SCH (08:38)
[2019-12-09] MEDS: ESCITALOPRAM OXALATE 10 MG TAB PO SCH (08:38)
[2019-12-09] MEDS: NICOTINE 14 MG/24 HR PATCH TD SCH (08:38)
[2019-12-09] MEDS ORDERED: DESTROY THIS MEDICATION ONE (09:36)
[2019-12-09 10:31] VITALS: PULSE 103
[2019-12-09 14:06] LABS: Codeine Urine NEGATIVE ng/mL (<50); Hydrocodone Urine NEGATIVE ng/mL (<50); Hydromor Urine NEGATIVE ng/mL (<50); Marijuana Quant, GCMS Urine 1310 ng/mL (<5); Morphine Urine NEGATIVE ng/mL (<50); Norhydrocodone Conf Ur NEGATIVE ng/mL (<50); Noroxycodone Urine 2720 ng/mL (<50); Oxycodone Urine 2920 ng/mL (<50); Oxymorph Urine 2110 ng/mL (<50)
== END 2019-12-09 10:35 | disposition home or self-care (01) | DRG 885 ==
LOC: ED 13:49 → SUATTDRO 18:36 → 3S 18:36